=== PATIENT | female | born 1995 | race Caucasian/White ===

== ENCOUNTER 2018-03-12 10:27 | Emergency (ER) | payer OTHER ==
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
[2018-03-12] MEDS ORDERED: WARF5TAB23 PO (10:31)
[2018-03-12] MEDS ORDERED: IBUPROFEN 600 MG TAB PO ONE (11:10)
[2018-03-12 11:28] VITALS: BP 117/82
== END 2018-03-12 11:38 | disposition home or self-care (01) ==
LOC: ER 10:31
DX: R51 Headache (principal); M79.602 Pain in left arm
CPT/HCPCS: 99283

== ENCOUNTER → 2018-03-12 | Outpatient (CLI) | payer OTHER ==
[~2018-03-12] MED LIST: WARF5TAB23 PO
== END ==
LOC: AMB 09:56
PROVIDERS: ATTEND Nurse Practitioner
DX: J34.89 Other specified disorders of nose and nasal sinuses (principal); V47.5XXA Car driver injured in collision with fixed or stationary object in traffic accident, initial encounter; W22.11XA Striking against or struck by driver side automobile airbag, initial encounter; Y92.411 Interstate highway as the place of occurrence of the external cause
CPT/HCPCS: A0425; A0427